=== PATIENT | female | born 1990 | race Caucasian/White ===

== ENCOUNTER 2023-12-12 12:01 | Emergency (ER) | payer SELFPAY ==
[2023-12-12 12:11] VITALS: BP 109/78; PULSE 74; RESP 16; TEMP 36.6; O2SAT 100
--- NOTE | 2023-12-12 12:32 | ED.GENADULT ---
HPI - General Adult General Chief complaint: Upper Respiratory Infection Stated complaint: Feeling Ill Time Seen by Provider: 12/12/23 12:32 Source: patient Mode of arrival: ambulatory Limitations: no limitations History of Present Illness HPI narrative: 33-year-old female here for a work note. Was seen at an ER in [facility]. Sent a picture of her work note and hospital paperwork to her boss due to missing work but wants hard copy of work note. Patient states that she no longer has that hard copy. Needs a new work note to be able to return to work. Patient has no complaints today. All systems reviewed and negative except as noted above. Related Data Home Medications Medication Instructions Recorded Confirmed Control 1 pill PO DAILY 12/12/23 Allergies Allergy/AdvReac Type Severity Reaction Status Date / Time No Known Allergies Allergy Verified 12/12/23 12:09 Review of Systems Review of Systems: CONSTITUTIONAL: Denies fever, chills, or sweats. EYES: Denies visual changes, redness, or discharge. ENT: Denies rhinorrhea, congestion, sore throat, or otalgia. CARDIOVASCULAR: Denies chest pain, palpitations, or edema. RESPIRATORY: Denies cough or dyspnea. GASTROINTESTINAL: Denies abdominal pain, nausea, vomiting, or diarrhea. GENITOURINARY: Denies dysuria or hematuria. SKIN: Denies rash or itching. MUSCULOSKELETAL: Denies back pain, joint pain, or myalgia. NEUROLOGIC: Denies headache, numbness, or weakness. PSYCHIATRIC: Denies anxiety or depression. All other systems reviewed are negative, except as documented in HPI. PMFSH Comments At time of signature, agree with nursing past medical, surgical, social and family history. There is no relevant family history pertinent to the presenting complaint. Exam Narrative: GENERAL: This is a well-nourished, well-developed patient, in no apparent distress. HEAD: normocephalic, atraumatic. EYES: PERRL. Sclera clear/white. Vision is grossly intact. EARS: External ears normal NOSE: External nose normal NECK: Neck supple, non-tender without lymphadenopathy, masses or thyromegaly. CARDIOVASCULAR: Regular rate and rhythm without murmurs, gallops, or rubs. RESPIRATORY: Clear to auscultation. Breath sounds equal bilaterally. No wheezes, rales, or rhonchi. SKIN: warm, Dry, intact with no suspicious lesions or rash, good texture and turgor. NEURO: awake, alert, and oriented to person, place and time. There were no obvious focal neurologic abnormalities. EXTREMITIES: No joint tenderness, effusion, or edema noted. Course Course Level of Care: Express Care Visit Vital Signs Vital signs: Vital Signs Temperature 36.6 C 12/12/23 12:11 Pulse Rate 74 12/12/23 12:11 Respiratory Rate 16 12/12/23 12:11 Blood Pressure 109/78 12/12/23 12:11 Pulse Oximetry 100 12/12/23 12:11 Oxygen Delivery Room Air 12/12/23 12:11 Temperature 36.6 C 12/12/23 12:11 Pulse Rate 74 12/12/23 12:11 Respiratory Rate 16 12/12/23 12:11 Blood Pressure 109/78 12/12/23 12:11 Pulse Oximetry 100 12/12/23 12:11 Oxygen Delivery Room Air 12/12/23 12:11 Reviewed Medical Decision Making MDM Narrative Medical decision making narrative: Patient is aware of diagnosis, understands and agrees to treatment plan. Anticipatory guidance given. Patient agrees to follow-up as directed and is aware of reasons to seek care at the emergency department. Portions of this record may have been created with voice recognition software Vital Signs Vital Signs: Vital Signs Temperature 36.6 C 12/12/23 12:11 Pulse Rate 74 12/12/23 12:11 Respiratory Rate 16 12/12/23 12:11 Blood Pressure 109/78 12/12/23 12:11 Pulse Oximetry 100 12/12/23 12:11 Oxygen Delivery Room Air 12/12/23 12:11 Temperature 36.6 C 12/12/23 12:11 Pulse Rate 74 12/12/23 12:11 Respiratory Rate 16 12/12/23 12:11 Blood Press
== END 2023-12-12 12:43 | disposition home or self-care (01) ==
PROVIDERS: Emergency Provider Nurse Practitioner Family
DX: Z00.00 Encounter for general adult medical examination without abnormal findings (principal)
CPT/HCPCS: 99211; G0463